=== PATIENT | female | born 1960 | race Caucasian/White ===

== ENCOUNTER → 2020-09-12 | Outpatient (CLI) | payer BC | LOC: LAB 09:05 | DX: R53.83 Other fatigue (principal); M79.10 Myalgia, unspecified site; R06.02 Shortness of breath; Z20.828 Contact with and (suspected) exposure to other viral communicable diseases ==

== ENCOUNTER → 2021-09-06 | Outpatient (CLI) | payer BC | LOC: LAB 16:30 | DX: Z20.822 Contact with and (suspected) exposure to COVID-19 (principal) ==